=== PATIENT | male | born 1935 | race African-American/Black ===

== ENCOUNTER 2017-01-13 09:20 | Day surgery (SDC) | payer OTHER, SELFPAY ==
--- NOTE | ~2017-01-13 | OP ---
Record Of Operation [facility] [address] [place]. [address] NAME: LEYDI ECHOLS : 37 STATUS : [facility]#: [id number] AGE: 81 ADM/REG DATE : 01/13/17 MR#: [id number] REPORT SERV DATE: 01/13/17 DICTATED BY: DAMARI MENJIVAR DATE: 01/13/17 REPORT STATUS : Draft TRANSCRIBED BY: MODL DATE: 01/13/17 DATE OF PROCEDURE: 01/13/2017 SURGEON: Damari Menjivar DPM. MODELING DIRECTOR: None. PREOPERATIVE DIAGNOSIS: Right second toe gangrene. POSTOPERATIVE DIAGNOSIS: Right second toe gangrene. PROCEDURE: Right second toe partial amputation. ANESTHESIA: MAC with local. HEMOSTASIS: None. ESTIMATED BLOOD LOSS: Approximately 8 mL. MATERIALS UTILIZED: 3-0 Monocryl and 4-0 Prolene. INJECTABLES: 20 mL of 0.5% ropivacaine plain, preoperatively, and 10 mL injected postoperatively. COMPLICATIONS: None. CONDITION: Stable. JUSTIFICATION FOR PROCEDURE: The patient is a very pleasant 81-year-old male, well known to me with a gangrenous changes due to significant peripheral vascular disease to his right second toe. The patient was revascularized by Dr. Gomes, recently making an optimal for surgical intervention at this time. The patient understands all the risk, benefits, and alternatives and the postoperative course in detail. The patient also understands that due to his poor vasculature that he is in increased risk for wound complications, but we believe due to his palpable pulses and increased temperature to his extremities since the revascularization that he will be up to heal this wound without too many difficulties. The patient understands again as in surgeries, there is no guarantees, none of which have been given, stated, or implied. He understand the postoperative period and details have been explained to him by myself. DESCRIPTION OF PROCEDURE: The patient was brought into the operating room and placed on the operating room table in the supine position, at which time, MAC anesthesia was administered by Anesthesia Service, and aforementioned preoperative nerve block administered proximal to second toe. Utilizing the standard protocol, the right foot is prepped, scrubbed, and draped in the usual sterile fashion. Record Of Operation [facility] [address] [place]. [address] NAME: LEYDI ECHOLS : 37 STATUS : [facility] PAT#: [id number] AGE: 81 ADM/REG DATE : 01/13/17 MR#: [id number] REPORT SERV DATE: 01/13/17 DICTATED BY: DAMARI MENJIVAR DATE: 01/13/17 REPORT STATUS : Draft TRANSCRIBED BY: RANDI DATE: 01/13/17 At this time, a skin marker was utilized to plan out a transverse fishmouth incision about the second toe, proximal to the interphalangeal joint. It had been noted that the distal aspect of the second toe had dry, gangrenous changes, but had improved since the revascularization that he had approximately a week and a half ago. A 15 blade was utilized to make an incision down to bone about the planned skin incision at the distal aspect of the toe had disarticulated and passed off the back table to sent off to send it for histopathology. Utilizing a sagittal saw, the proximal phalanx was resected at midshaft and passed off to the back table. This wound was copiously irrigated with sterile saline. The tendons were distracted distally and severed proximally. The wound was then again copiously irrigated and there was to be noted, there was healthy bleeding throughout this procedure with viable healthy tissue noted. One deep stitch was placed utilized Monocryl followed by cutaneous reapproximation in a horizontal mattress in a simple suture fashion with no tension. The aforementioned postoperative nerve block was administered proximal to the incision site followed by placing gauze, Kerlix, and an ABD pad about the right foot followed by placing Coban with minimal-to no compression at all about the right foot. The Coban was placed to keep the dressing intact. The patient tolerated the procedure and anesthesia well, left the operating room with vital signs stable and neurovascular status intact to his right lower extremity. The patient will be allow to be weight bearing as tolerated in a postoperative shoe, has been instructed to all signs and symptoms on infection and is to call the office immediately and report to the emergency room if any problems or signs of infection should occur prior to his scheduled followup appointment. SUSANNE/RANDI Damari Menjivar DPM / [id number] CC: SANDER Coyne M.D.
[~2017-01-13 09:20] MED LIST: ARANESP60 IV; ASAB PO; C25 PO; CARDCD180 PO; COREG25 PO; EZFE 200200 MG PO; FLAG500TAB PO; GLUCOTRO10 PO; HALF81 PO; K500 PO; L20 PO; LIPITOR20 PO; LIPITOR40 PO; NEPHRO-VITE PO; NIFEDIAC CC90 MG PO; PCET PO; PERCOCET1 TA2 PO; PHOSLO PO; PLAVIX PO; PRIN20 PO; ROCALTROL0.25 MCG OR; T PO; TUMSROLL PO; ULTRAM50 PO; VENOFER IV; ZESTRIL20 MG PO
[2017-01-13 09:53] LABS: BASOPHILS 0.3 %; BASOPHILS ABSOLUTE 0.03 10/3/uL (0.0-0.16); EOSINOPHILS 2.7 %; EOSINOPHILS ABSOLUTE 0.26 10/3/uL (0.0-0.53); HEMATOCRIT 33.7 % (40.0-51.0); IMMATURE GRANULOCYTES 0.3 %; IMMATURE GRANULOCYTES ABSOLUTE 0.03 10/3/uL (0.0-0.11); LYMPHOCYTES 14.3 %; MANUAL DIFF NO %; MEAN CORPUS HGB CONC 32.6 g/dL (32.0-36.0); MEAN CORPUSCULAR HEMOGLOB 31.3 pg (26.0-34.0); MEAN PLATELET VOLUME 11.2 fL (9.2-13.0); MONOCYTES 8.1 %; MONOCYTES ABSOLUTE 0.79 10/3/uL (0.21-1.20); NEUTROPHILS 74.3 %; NEUTROPHILS ABSOLUTE 7.29 10/3/uL (2.02-8.40); PLATELET COUNT 182 10/3/uL (150-400); RED CELL COUNT 3.51 10/6/uL (4.7-6.1); WHITE BLOOD CELLS 9.8 10/3/uL (4.5-10.5)
[2017-01-13 10:05] LABS: CALCIUM, SERUM 8.9 MG/DL (8.5-10.4); CHLORIDE, SERUM 101 MMOL/L (96-112); CO2 (CARBON DIOXIDE) 27 MMOL/L (24-34); GFR AFRICAN AMERICAN 9 ML/MIN (>=60); GFR NON AFRICAN AMERICAN 8 ML/MIN (>=60); GLUCOSE, SERUM 95 MG/DL (60-99); SODIUM, SERUM 139 MMOL/L (135-148)
[2017-01-13 10:06] LABS: BUN (BLOOD UREA NITROGEN) 28 MG/DL (6-23); CREATININE 6.11 MG/DL (0.70-1.30)
== END 2017-01-13 16:58 | disposition home or self-care (01) ==
LOC: SDC 09:20
PROVIDERS: Podiatrist
PROC: 0Y6R0Z0 Detachment at Right 2nd Toe, Complete, Open Approach (ICD-10-PCS; principal; 2017-01-13 10:45)
DX: M87.877 Other osteonecrosis, right toe(s) (principal); I25.10 Atherosclerotic heart disease of native coronary artery without angina pectoris; I12.0 Hypertensive chronic kidney disease with stage 5 chronic kidney disease or end stage renal disease; N18.6 End stage renal disease; K21.9 Gastro-esophageal reflux disease without esophagitis; Z95.5 Presence of coronary angioplasty implant and graft; M19.90 Unspecified osteoarthritis, unspecified site; Z90.49 Acquired absence of other specified parts of digestive tract; E11.22 Type 2 diabetes mellitus with diabetic chronic kidney disease; F32.9 Major depressive disorder, single episode, unspecified; D64.9 Anemia, unspecified; Z99.2 Dependence on renal dialysis; Z98.890 Other specified postprocedural states; Z88.5 Allergy status to narcotic agent; Z98.41 Cataract extraction status, right eye; Z90.89 Acquired absence of other organs
CPT/HCPCS: 73630-RT; 80048; 82962; 85025; 88305; 88311; 93005; A9270-GY; J0690; J2405; J2795; J3010

== ENCOUNTER 2017-01-29 10:12 | Day surgery (SDC) | payer OTHER, SELFPAY ==
--- NOTE | ~2017-01-29 | OP ---
Record Of Operation [facility] [address] [place]. [address] NAME: LEYDI ECHOLS : 37 STATUS : [facility]#: [id number] AGE: 81 ADM/REG DATE : 01/29/17 MR#: [id number] REPORT SERV DATE: 01/29/17 DICTATED BY: DAMARI MENJIVAR DATE: 01/29/17 REPORT STATUS : Draft TRANSCRIBED BY: MODL DATE: 01/29/17 DATE OF PROCEDURE: 01/29/2017 SURGEON: Damari Menjivar DPM. PREOPERATIVE DIAGNOSIS: Left second toe gangrene. POSTOPERATIVE DIAGNOSIS: Left second toe gangrene. PROCEDURE: Left second toe partial amputation. ANESTHESIA: MAC with local. HEMOSTASIS: None. ESTIMATED BLOOD LOSS: 2 mL. MATERIALS UTILIZED: 4-0 Prolene. INJECTABLES: 10 mL of 0.5% ropivacaine plain injected preoperatively. COMPLICATIONS: None. CONDITION: Stable. SPECIMEN: Bone sent for histopathology and microbiology. JUSTIFICATION FOR PROCEDURE: The patient is a very pleasant 81-year-old male well known to my practice with gangrenous changes to his second toe due to significant peripheral vascular disease to his left lower extremity. The patient was recently revascularized by Dr. Gomes, making him optimal for surgical intervention this time. The patient understands all the risks, benefits, alternatives of the postoperative course in detail. The patient understands that due to his poor vasculature that he is at increased risk for wound complication postoperatively, but we believe that due to his palpable pulses and increased temperature to his extremity since his recent vascularization that he will be optimized to a degree where he will not have difficulties healing. The patient understands again as in all surgeries, there are no guarantees, none of which have been given, stated, or implied. He understands the postoperative period and the details, and which have been explained to him by myself. Informed consent was also obtained by myself. DESCRIPTION OF PROCEDURE: The patient was brought into the operating room and placed on the operating room table in supine position, at which time, MAC anesthesia was administered by Anesthesia Services. The aforementioned preoperative nerve block was administered proximal to the left second toe. Utilizing the standard protocol, the left foot was prepped, scrubbed, and draped in usual sterile fashion. Record Of Operation [facility] [address] [place]. [address] NAME: LEYDI ECHOLS : 37 STATUS : [facility] PAT#: [id number] AGE: 81 ADM/REG DATE : 01/29/17 MR#: [id number] REPORT SERV DATE: 01/29/17 DICTATED BY: DAMARI MENJIVAR DATE: 01/29/17 REPORT STATUS : Draft TRANSCRIBED BY: RANDI DATE: 01/29/17 At this time, a skin marker was utilized to plan out a transverse fishmouth incision about the left second toe, proximal to the interphalangeal joint. It has been noted that the distal aspect of this left second toe was dry with gangrenous changes, although did not appear acutely infected, and there has been improvement to the site since most recent revascularization less than a week ago. At this time, a #15-blade was utilized to make an incision down to bone about the planned skin incision, about the second toe disarticulating the second toe at the proximal interphalangeal joint passing this specimen to the back table to be sent off for histopathology, microbiology. Next, a sagittal saw was utilized to resect the proximal phalanx at the midshaft and this was passed off to the back table. Next, the wound was copiously irrigated with sterile saline and the tendons were distracted distally and severed as far proximally allowing them to retract proximally. Again, there was noted to be healthy bleeding throughout this procedure. Next, with no tension on the skin edges, 4-0 Prolene was utilized for continuous reapproximation in a horizontal mattress fashion. At this time, copious gauze Kerlix and ABD pad were applied about the left foot followed by an INGRID bandage with very minimal to no compression about the left foot. The patient tolerated the procedure and anesthesia well, left the operating room vital signs stable, and neurovascular status intact to his left lower extremity. The patient will be allowed to be partial weightbearing in a postoperative shoe with heel touch postoperatively. He has been instructed all signs and symptoms of infection, and is to call the office immediately and report to the emergency room if any of these problems should occur prior to his scheduled followup appointment. We will see the patient in 3 to 5 days unless he needs to be seen sooner. SUSANNE/RANDI Damari Menjivar DPM / [id number] CC: SANDER Coyne M.D.
[2017-01-29 10:40] LABS: BASOPHILS 0.5 %; BASOPHILS ABSOLUTE 0.04 10/3/uL (0.0-0.16); EOSINOPHILS 3.3 %; EOSINOPHILS ABSOLUTE 0.29 10/3/uL (0.0-0.53); HEMATOCRIT 33.4 % (40.0-51.0); HEMOGLOBIN 10.5 g/dL (13.6-17.8); IMMATURE GRANULOCYTES 0.2 %; IMMATURE GRANULOCYTES ABSOLUTE 0.02 10/3/uL (0.0-0.11); LYMPHOCYTES 23.1 %; LYMPHOCYTES ABSOLUTE 2.01 10/3/uL (0.67-4.30); MEAN CORPUS HGB CONC 31.4 g/dL (32.0-36.0); MEAN CORPUSCULAR HEMOGLOB 30.6 pg (26.0-34.0); MEAN CORPUSCULAR VOLUME 97.4 fL (80-100); MONOCYTES 8.4 %; MONOCYTES ABSOLUTE 0.73 10/3/uL (0.21-1.20); NEUTROPHILS 64.5 %; NEUTROPHILS ABSOLUTE 5.62 10/3/uL (2.02-8.40); PLATELET COUNT 200 10/3/uL (150-400); RED CELL COUNT 3.43 10/6/uL (4.7-6.1); WHITE BLOOD CELLS 8.7 10/3/uL (4.5-10.5)
[2017-01-29 10:41] LABS: MANUAL DIFF NO %
[2017-01-29 10:52] LABS: BUN (BLOOD UREA NITROGEN) 23 MG/DL (6-23); CALCIUM, SERUM 8.7 MG/DL (8.5-10.4); CHLORIDE, SERUM 100 MMOL/L (96-112); CO2 (CARBON DIOXIDE) 30 MMOL/L (24-34); CREATININE 5.64 MG/DL (0.70-1.30); GFR AFRICAN AMERICAN 10 ML/MIN (>=60); GFR NON AFRICAN AMERICAN 9 ML/MIN (>=60); GLUCOSE, SERUM 163 MG/DL (60-99); POTASSIUM, SERUM 4.1 MMOL/L (3.5-5.3); SODIUM, SERUM 139 MMOL/L (135-148)
== END 2017-01-29 14:55 | disposition home or self-care (01) ==
LOC: SDC 10:12
PROVIDERS: Podiatrist
PROC: 0Y6S0Z1 Detachment at Left 2nd Toe, High, Open Approach (ICD-10-PCS; principal; 2017-01-29 11:45)
DX: L97.521 Non-pressure chronic ulcer of other part of left foot limited to breakdown of skin (principal); I25.10 Atherosclerotic heart disease of native coronary artery without angina pectoris; E11.22 Type 2 diabetes mellitus with diabetic chronic kidney disease; N18.6 End stage renal disease; J45.909 Unspecified asthma, uncomplicated; E78.00 Pure hypercholesterolemia, unspecified; I73.9 Peripheral vascular disease, unspecified; M19.90 Unspecified osteoarthritis, unspecified site; F32.9 Major depressive disorder, single episode, unspecified; D64.9 Anemia, unspecified; Z90.49 Acquired absence of other specified parts of digestive tract; Z90.89 Acquired absence of other organs; Z98.890 Other specified postprocedural states
CPT/HCPCS: 73630-LT; 80048; 82962; 85025; 87070; 87075; 87205; 88305; 88311; 93005; J0690; J2405; J2795

== ENCOUNTER 2017-05-06 13:53 | Inpatient (IN) | payer OTHER ==
--- NOTE | ~2017-05-06 | DS ---
Discharge Summary [facility] [address] [place]. [address] NAME: LEYDI ECHOLS : 37 STATUS : DIS IN PAT#: [id number] AGE: 81 ADM/REG DATE : 05/06/17 MR#: [id number] REPORT SERV DATE: 05/23/17 DICTATED BY: HARPER RODRIGUEZ DATE: 05/22/17 REPORT STATUS : Draft TRANSCRIBED BY: RANDI DATE: 05/22/17 Data Collection from hospitalization DISCHARGE DIAGNOSES: 1. End-stage renal disease. 2. Vertigo. 3. Nausea and vomiting. 4. Atrial fibrillation. 5. Hypertension. 6. Diabetes mellitus. 7. Peripheral vascular disease. 8. History of remote myocardial infarction. 9. Dyslipidemia. 10.Coronary artery disease. 11.Anemia. CONSULTATIONS: None. PROCEDURES PERFORMED: None. MEDICATIONS: Aspirin 81 mg at bedtime, Lipitor 20 mg at bedtime, Coreg 12.5 mg twice a day, Plavix 75 mg at bedtime, Cartia XT 180 mg every morning, Lasix 20 mg every morning, Glucotrol 10 mg twice a day, Advil 200 mg daily as needed, Prinivil 20 mg twice a day, Antivert 25 mg three times a day as needed, multivitamins one tablet every morning, Nitrostat 0.4 mg sublingually as needed, and Zofran 4 mg every six hours as needed. CONDITION AT DISCHARGE: Stable. DISPOSITION: The patient was discharged home on a renal diet with activities as instructed. He would follow up with Dr. Kb Cook one to two weeks following discharge. He would resume his outpatient dialysis as scheduled. HOSPITAL COURSE: This is an 81-year-old man who dialyzes on Mondays, Wednesdays, and Fridays via a left upper extremity AV fistula. He presented to the emergency room with nausea, vomiting, and dizziness over the past four days. He said that his symptoms were of vertigo and indicated that he had not eaten anything, but applesauce over the last four days. He had persistent nausea with heaving and presented to the emergency room. His blood pressure was elevated at 251/112. He was given hydralazine and it decreased to 198/96. He remained persistently nauseated at this time. He was admitted to the hospital at this time for further evaluation and treatment. Upon admission, we were going to begin blood pressure control, antiemetics were going to be given as well as Antivert. The following day, hemodialysis therapy was performed. He still complained of some vertigo course. Blood pressure control had improved. On 05/08/2017, he had no edema. He continued to have good pain control. His abdomen was soft and nontender. He had active bowel sounds. His nausea and vomiting resolved. Discharge planning was performed. The following day, he did have a brief episode of vertigo, this lasted less than 1 minute. It was felt that this was probable benign positional vertigo. Meclizine was Discharge Summary [address] [place]. [address] NAME: LEYDI ECHOLS : 37 STATUS : DIS IN PAT#: [id number] AGE: 81 ADM/REG DATE : 05/06/17 MR#: [id number] REPORT SERV DATE: 05/23/17 DICTATED BY: HARPER RODRIGUEZ DATE: 05/22/17 REPORT STATUS : Draft TRANSCRIBED BY: RANDI DATE: 05/22/17 going to continue in the hospital. Discharge planning was performed. Hemodialysis therapy continued. On 05/10/2017, he had no complaints. He was alert and cooperative. Discharge instructions were given. Due to his improved and stable condition, he was discharged home with the above-stated instructions. Information collected by: Aidee Gonzales I submit the above information as my discharge summary. GUZMAN/RANDI Harper Rodriguez M.D. / [id number] CC: Kusum Fan M.D.
--- NOTE | ~2017-05-06 | HP ---
History And Physical [place] [id number] [facility] [place] [place]. [address] NAME: LEYDI ECHOLS : 36 STATUS : ADM IN [facility]#: [id number] AGE: 81 ADM/REG DATE : 05/06/17 MR#: [id number] REPORT SERV DATE: 05/06/17 DICTATED BY: HARPER RODRIGUEZ DATE: 05/06/17 REPORT STATUS : Draft TRANSCRIBED BY: MODBrittany DATE: 05/06/17 DATE OF ADMISSION: 05/06/2017 INDICATION FOR ADMISSION: Protracted nausea, vomiting, vertigo, and accelerated hypertension. HISTORY OF PRESENT ILLNESS: Mr. Echols is an 81-year-old male, who dialyzes Friday, Friday, Friday at [facility] by a left upper extremity AV fistula, who presented to the emergency room with nausea, vomiting, dizziness x4 days. He relates symptoms of vertigo and indicates that he has not eaten anything, but applesauce in the last four days. He was having persistent nausea with heaving and presented to the emergency room. His blood pressure was elevated to 251/112, and he was given hydralazine with it falling to 198/96. Presently, he is persistently nauseated. PAST MEDICAL HISTORY: Hypertension; end-stage renal disease, dialyzing Friday, Friday, Friday at [facility] by a left upper extremity AV fistula; type 2 diabetes mellitus; atrial fibrillation; peripheral vascular disease, status post atherectomy of right popliteal artery and [employer]APH[employer] EDIT TECHNICIAN of right posterior tibial artery; dyslipidemia; remote ND; coronary artery disease with PCI in 2012; anemia. PAST SURGICAL HISTORY: Atherectomy of right popliteal artery and GRAPHICS EDIT TECHNICIAN of right posterior tibial artery, amputation of second digit from both right and left feet, left great toe amputation, right total knee arthroplasty. ALLERGIES: LISTED OXYCODONE. HOME MEDICATIONS: Aspirin, Lipitor, carvedilol, Plavix, diltiazem, furosemide, glipizide, ibuprofen, lisinopril, multivitamin, and nitroglycerin tablets. SOCIAL HISTORY: The patient lives alone. No use of alcohol, tobacco, or illicit drugs. He presently is working on [employer] in the [employer]. FAMILY HISTORY: Two sisters with hypertension. Father of lung cancer. No history of end-stage renal disease or stroke. REVIEW OF SYSTEMS: HEENT: Denies headaches. Has noted vertigo and dizziness. No epistaxis, otic infection, or pharyngitis. PULMONARY: Denies shortness of breath, cough, or hemoptysis. CARDIAC: Denies chest pain or lower extremity edema. GI: Protracted nausea, vomiting, and heaving. No constipation or blood per rectum. No diarrhea. : No gross hematuria. MUSCULOSKELETAL: Pain in knees. INTEGUMENT: No rash. No itching. NEUROLOGIC: No lateralizing weakness or seizure activity. History And Physical [address] [place]. [address] NAME: LEYDI ECHOLS : 36 STATUS : ADM IN [facility]#: [id number] AGE: 81 ADM/REG DATE : 05/06/17 MR#: [id number] REPORT SERV DATE: 05/06/17 DICTATED BY: HARPER RODRIGUEZ DATE: 05/06/17 REPORT STATUS : Draft TRANSCRIBED BY: RANDI DATE: 05/06/17 Remainder of 12-point review of systems is negative. PHYSICAL EXAMINATION: VITAL SIGNS: Blood pressure falling from 251/112 to 198/96, temp 97, pulse 79, respiratory rate 16. GENERAL: Pleasant elderly male, alert and cooperative. HEENT: Eyes with muddy sclerae. Pupils equal and reactive to light. Extraocular movement intact. Nares patent. No discharge. Throat, no injection. Mucous membranes moist. Caries noted in teeth with multiple missing teeth. NECK: No thyromegaly, masses, or bruits. CHEST/LUNGS: Late crackles posteriorly. No wheezing. No dullness. CARDIAC: Regular rate and rhythm. A 1/6 systolic ejection murmur. No gallop or rub. ABDOMEN: Supple. Normoactive bowel sounds. Nontender. No hepatosplenomegaly. No masses. /RECTAL: Not performed. EXTREMITIES: No lower extremity edema. No calf tenderness. DERMIS: No rash. No skin lesions. VASCULATURE: Left upper extremity AV fistula with good bruit and thrill. MUSCULOSKELETAL: No deformity, excluding amputation of digits from both feet. IMPRESSION: 1. Protracted nausea and vomiting. 2. Vertigo. 3. Accelerated hypertension. 4. End-stage renal disease, dialyzing Friday, Friday, Friday at [facility] by AVF. 5. Noncompliance with dialysis. 6. Type 2 diabetes mellitus. 7. History of atrial fibrillation. 8. Peripheral vascular disease. 9. Dyslipidemia. 10.Remote myocardial infarction. 11.Anemia. 12.Coronary artery disease, status post PCI in 2012. PLAN: 1. Control blood pressure. 2. Antiemetics. 3. Antivert. 4. Hemodialysis on 05/07. CG/RANDI Harper Rodriguez M.D. History And Physical [address] [address] NAME: LEYDI ECHOLS : 37 STATUS : ADM IN [facility]#: [id number] AGE: 81 ADM/REG DATE : 05/06/17 MR#: [id number] REPORT SERV DATE: 05/06/17 DICTATED BY: HARPER RODRIGUEZ DATE: 05/06/17 REPORT STATUS : Draft TRANSCRIBED BY: RANDI DATE: 05/06/17 / [id number] CC: Kusum Fan M.D.
[2017-05-06 11:36] LABS: BASOPHILS 0.1 %; BASOPHILS ABSOLUTE 0.01 10/3/uL (0.0-0.16); EOSINOPHILS 2.3 %; EOSINOPHILS ABSOLUTE 0.16 10/3/uL (0.0-0.53); IMMATURE GRANULOCYTES 0.1 %; IMMATURE GRANULOCYTES ABSOLUTE 0.01 10/3/uL (0.0-0.11); LYMPHOCYTES 20.7 %; LYMPHOCYTES ABSOLUTE 1.47 10/3/uL (0.67-4.30); MANUAL DIFF NO %; MEAN CORPUS HGB CONC 34.1 g/dL (32.0-36.0); MEAN CORPUSCULAR HEMOGLOB 31.4 pg (26.0-34.0); MEAN CORPUSCULAR VOLUME 91.9 fL (80-100); MONOCYTES 4.8 %; MONOCYTES ABSOLUTE 0.34 10/3/uL (0.21-1.20); PLATELET COUNT 136 10/3/uL (150-400); RBC DISTRIBUTION WIDTH 15.7 % (12.0-16.0); RED CELL COUNT 4.46 10/6/uL (4.7-6.1); WHITE BLOOD CELLS 7.1 10/3/uL (4.5-10.5)
[2017-05-06 11:43] LABS: INTERNATIONAL NORMAL RATI 1.1 UNITS (-); PARTIAL THROMBO TIME 26.4 SEC (22.5-37.2)
[2017-05-06 11:44] LABS: PROTIME (NOT ORD) 14.1 SEC (12.0-14.5)
[2017-05-06 11:56] LABS: BUN (BLOOD UREA NITROGEN) 65 MG/DL (6-23); CALCIUM, SERUM 8.9 MG/DL (8.5-10.4); CHEST PAIN PROFILE TAT 0 Hrs 26 Mins; CHLORIDE, SERUM 101 MMOL/L (96-112); CO2 (CARBON DIOXIDE) 25 MMOL/L (24-34); GFR AFRICAN AMERICAN 4 ML/MIN (>=60); GFR NON AFRICAN AMERICAN 3 ML/MIN (>=60); GLUCOSE, SERUM 127 MG/DL (60-99); POTASSIUM, SERUM 3.9 MMOL/L (3.5-5.3); SODIUM, SERUM 140 MMOL/L (135-148); TROPONIN I 0.02 NG/ML (<0.05)
[2017-05-06] MEDS ORDERED: COREG12 PO (15:40)
[2017-05-06] MEDS ORDERED: CARTIA XT180 MG/24 PO (15:40)
[2017-05-06] MEDS ORDERED: L20 PO (15:41)
[2017-05-06] MEDS ORDERED: GLUCOTRO10 PO (15:41)
[2017-05-06] MEDS ORDERED: PRIN20 PO (15:42)
[2017-05-06] MEDS ORDERED: LIPITOR20 PO (15:43)
[2017-05-06] MEDS ORDERED: ASAB PO (15:43)
[2017-05-06] MEDS ORDERED: MULTIVIT/MIN PO (15:43)
[2017-05-06] MEDS ORDERED: PLAVIX PO (15:46)
[2017-05-06] MEDS ORDERED: ADVIL PO (15:46)
[2017-05-06] MEDS ORDERED: NITROSTAT0.4 MG SL (15:48)
[2017-05-07 06:26] LABS: BASOPHILS 0.3 %; BASOPHILS ABSOLUTE 0.02 10/3/uL (0.0-0.16); EOSINOPHILS 0.8 %; EOSINOPHILS ABSOLUTE 0.06 10/3/uL (0.0-0.53); HEMATOCRIT 39.1 % (40.0-51.0); HEMOGLOBIN 13.3 g/dL (13.6-17.8); IMMATURE GRANULOCYTES 0.3 %; IMMATURE GRANULOCYTES ABSOLUTE 0.02 10/3/uL (0.0-0.11); LYMPHOCYTES 27.6 %; LYMPHOCYTES ABSOLUTE 2.09 10/3/uL (0.67-4.30); MANUAL DIFF NO %; MEAN CORPUSCULAR HEMOGLOB 31.4 pg (26.0-34.0); MEAN CORPUSCULAR VOLUME 92.4 fL (80-100); MEAN PLATELET VOLUME 11.2 fL (9.2-13.0); MONOCYTES 6.3 %; MONOCYTES ABSOLUTE 0.48 10/3/uL (0.21-1.20); NEUTROPHILS 64.7 %; PLATELET COUNT 147 10/3/uL (150-400); RED CELL COUNT 4.23 10/6/uL (4.7-6.1); WHITE BLOOD CELLS 7.6 10/3/uL (4.5-10.5)
[2017-05-07 06:43] LABS: CALCIUM, SERUM 8.6 MG/DL (8.5-10.4); CHLORIDE, SERUM 103 MMOL/L (96-112); POTASSIUM, SERUM 4.1 MMOL/L (3.5-5.3); SODIUM, SERUM 139 MMOL/L (135-148)
[2017-05-07 06:49] LABS: BUN (BLOOD UREA NITROGEN) 73 MG/DL (6-23); CO2 (CARBON DIOXIDE) 20 MMOL/L (24-34); GFR AFRICAN AMERICAN 4 ML/MIN (>=60); GFR NON AFRICAN AMERICAN 3 ML/MIN (>=60); GLUCOSE, SERUM 50 MG/DL (60-99)
[2017-05-09 07:57] LABS: BASOPHILS 0.4 %; BASOPHILS ABSOLUTE 0.03 10/3/uL (0.0-0.16); EOSINOPHILS 5.8 %; EOSINOPHILS ABSOLUTE 0.43 10/3/uL (0.0-0.53); HEMATOCRIT 37.9 % (40.0-51.0); HEMOGLOBIN 12.7 g/dL (13.6-17.8); IMMATURE GRANULOCYTES 0.1 %; IMMATURE GRANULOCYTES ABSOLUTE 0.01 10/3/uL (0.0-0.11); LYMPHOCYTES 29.2 %; LYMPHOCYTES ABSOLUTE 2.15 10/3/uL (0.67-4.30); MEAN CORPUS HGB CONC 33.5 g/dL (32.0-36.0); MEAN CORPUSCULAR HEMOGLOB 30.7 pg (26.0-34.0); MEAN CORPUSCULAR VOLUME 91.5 fL (80-100); MEAN PLATELET VOLUME 11.8 fL (9.2-13.0); MONOCYTES 8.4 %; MONOCYTES ABSOLUTE 0.62 10/3/uL (0.21-1.20); NEUTROPHILS 56.1 %; NEUTROPHILS ABSOLUTE 4.12 10/3/uL (2.02-8.40); PLATELET COUNT 135 10/3/uL (150-400); RED CELL COUNT 4.14 10/6/uL (4.7-6.1); WHITE BLOOD CELLS 7.4 10/3/uL (4.5-10.5)
[2017-05-09 07:58] LABS: MANUAL DIFF NO %
[2017-05-09 08:10] LABS: ALBUMIN 3.3 G/DL (3.5-5.0); BUN (BLOOD UREA NITROGEN) 61 MG/DL (6-23); CALCIUM, SERUM 8.7 MG/DL (8.5-10.4); CHLORIDE, SERUM 101 MMOL/L (96-112); CO2 (CARBON DIOXIDE) 24 MMOL/L (24-34); GFR AFRICAN AMERICAN 5 ML/MIN (>=60); GFR NON AFRICAN AMERICAN 4 ML/MIN (>=60); GLUCOSE, SERUM 91 MG/DL (60-99); PHOSPHORUS, SERUM 6.2 MG/DL (2.5-4.5); POTASSIUM, SERUM 4.7 MMOL/L (3.5-5.3); SODIUM, SERUM 135 MMOL/L (135-148)
[2017-05-10 06:04] LABS: BASOPHILS 0.3 %; BASOPHILS ABSOLUTE 0.02 10/3/uL (0.0-0.16); EOSINOPHILS 4.9 %; EOSINOPHILS ABSOLUTE 0.35 10/3/uL (0.0-0.53); HEMOGLOBIN 12.5 g/dL (13.6-17.8); LYMPHOCYTES 25.8 %; LYMPHOCYTES ABSOLUTE 1.85 10/3/uL (0.67-4.30); MEAN CORPUS HGB CONC 32.9 g/dL (32.0-36.0); MEAN CORPUSCULAR HEMOGLOB 30.9 pg (26.0-34.0); MEAN CORPUSCULAR VOLUME 93.8 fL (80-100); MEAN PLATELET VOLUME 11.9 fL (9.2-13.0); MONOCYTES 8.7 %; MONOCYTES ABSOLUTE 0.62 10/3/uL (0.21-1.20); NEUTROPHILS 60.3 %; NEUTROPHILS ABSOLUTE 4.32 10/3/uL (2.02-8.40); PLATELET COUNT 127 10/3/uL (150-400); RED CELL COUNT 4.05 10/6/uL (4.7-6.1); WHITE BLOOD CELLS 7.2 10/3/uL (4.5-10.5)
[2017-05-10 06:07] LABS: MANUAL DIFF NO %
[2017-05-10 06:23] LABS: ALBUMIN 3.5 G/DL (3.5-5.0); CALCIUM, SERUM 9.2 MG/DL (8.5-10.4); CHLORIDE, SERUM 103 MMOL/L (96-112); CO2 (CARBON DIOXIDE) 26 MMOL/L (24-34); POTASSIUM, SERUM 4.5 MMOL/L (3.5-5.3); SODIUM, SERUM 138 MMOL/L (135-148)
[2017-05-10 06:24] LABS: BUN (BLOOD UREA NITROGEN) 39 MG/DL (6-23); GFR AFRICAN AMERICAN 7 ML/MIN (>=60); GFR NON AFRICAN AMERICAN 6 ML/MIN (>=60); GLUCOSE, SERUM 121 MG/DL (60-99); PHOSPHORUS, SERUM 4.8 MG/DL (2.5-4.5)
[2017-05-10] MEDS ORDERED: ZOFRAN4 PO (14:00)
[2017-05-10] MEDS ORDERED: MCZ25 PO (14:01)
== END 2017-05-10 17:09 | disposition home or self-care (01) | DRG 682 ==
LOC: ER 13:53 → 5SO 16:56
PROVIDERS: Emergency Medicine; Internal Medicine Nephrology
PROC: 5A1D60Z (ICD-10-PCS; principal; 2017-05-07)
DX: I12.0 Hypertensive chronic kidney disease with stage 5 chronic kidney disease or end stage renal disease (principal); N18.6 End stage renal disease; E11.22 Type 2 diabetes mellitus with diabetic chronic kidney disease; I48.2 Chronic atrial fibrillation; I25.110 Atherosclerotic heart disease of native coronary artery with unstable angina pectoris; H81.13 Benign paroxysmal vertigo, bilateral; I73.9 Peripheral vascular disease, unspecified; E78.5 Hyperlipidemia, unspecified; Z91.15 Patient's noncompliance with renal dialysis; Z99.2 Dependence on renal dialysis; I25.2 Old myocardial infarction; Z95.5 Presence of coronary angioplasty implant and graft; Z82.49 Family history of ischemic heart disease and other diseases of the circulatory system; Z80.1 Family history of malignant neoplasm of trachea, bronchus and lung; Z88.5 Allergy status to narcotic agent; Z79.82 Long term (current) use of aspirin; Z79.02 Long term (current) use of antithrombotics/antiplatelets; Z89.412 Acquired absence of left great toe; Z96.651 Presence of right artificial knee joint
CPT/HCPCS: 71010; 80048; 80069; 82962; 83735; 84484; 85025; 85610; 85730; 93005; 94640; 96374; 96375; 99285; A9270-GY; G0257; J0360; J2405; P9047